=== PATIENT | female | born 1990 | race Caucasian/White ===

== ENCOUNTER 2019-01-26 23:01 | Emergency (ER) | payer OTHER ==
[~2019-01-26] VITALS: Ht 160 cm; Wt 66.2 kg
[2019-01-26] MEDS ORDERED: DICLEGIS (23:51)
[2019-01-26] MEDS ORDERED: ONDANSETRON ODT4 MG (23:51)
[2019-01-26] MEDS ORDERED: MILANTA (23:53)
[2019-01-26] MEDS ORDERED: INMODIUN (23:54)
[2019-01-27] MEDS ORDERED: FOLIC ACID1 MG (00:55)
[2019-01-27] MEDS ORDERED: PEPCID40 MG PO (08:07)
[2019-01-27] MEDS ORDERED: ZOFRAN ODT4 MG PO (08:07)
== END 2019-01-27 08:52 | disposition home or self-care (01) ==
LOC: ER 23:01
DX: O26.891 Other specified pregnancy related conditions, first trimester (principal); K52.89 Other specified noninfective gastroenteritis and colitis; R10.2 Pelvic and perineal pain; Z34.01 Encounter for supervision of normal first pregnancy, first trimester

== ENCOUNTER 2019-01-30 11:42 | Inpatient (IN) | payer OTHER ==
[~2019-01-30] VITALS: Ht 160 cm; Wt 63.5 kg
[~2019-01-30 11:42] MED LIST: DICLEGIS; FOLIC ACID1 MG; INMODIUN; MILANTA; ONDANSETRON ODT4 MG; PEPCID40 MG PO; ZOFRAN ODT4 MG PO
[2019-01-31] MEDS ORDERED: IMODIUM MULTI-1 EACH PO (09:02)
[2019-01-31] MEDS ORDERED: DICLEGIS DR 101 EACH PO (09:03)
== END 2019-02-02 13:08 | disposition home or self-care (01) | DRG 833 ==
LOC: OB/GYN 11:42
PROVIDERS: ADMIT Obstetrics & Gynecology
DX: O26.891 Other specified pregnancy related conditions, first trimester (principal); A08.8 Other specified intestinal infections; K52.89 Other specified noninfective gastroenteritis and colitis; Z34.01 Encounter for supervision of normal first pregnancy, first trimester

== ENCOUNTER 2019-02-19 17:25 | Inpatient (IN) | payer OTHER ==
[~2019-02-19] VITALS: Ht 160 cm; Wt 61.7 kg
[~2019-02-19 17:25] MED LIST changes: +DICLEGIS DR 101 EACH PO; +IMODIUM MULTI-1 EACH PO
== END 2019-02-21 10:46 | disposition home or self-care (01) | DRG 833 ==
LOC: OB/GYN 17:25
PROVIDERS: ADMIT Obstetrics & Gynecology Maternal & Fetal Medicine
DX: O21.0 Mild hyperemesis gravidarum (principal); Z34.02 Encounter for supervision of normal first pregnancy, second trimester

== ENCOUNTER 2019-07-10 08:34 | Inpatient (IN) | payer OTHER ==
[~2019-07-10] VITALS: Ht 160 cm; Wt 2.3 kg
== END 2019-07-12 13:38 | disposition home or self-care (01) | DRG 807 ==
LOC: LDR 08:34 → OB/GYN 07-11 08:10
PROVIDERS: ADMIT Obstetrics & Gynecology
PROC: 10D07Z6 Extraction of Products of Conception, Vacuum, Via Natural or Artificial Opening (ICD-10-PCS; principal; 2019-07-10)
PROC: 0KQM0ZZ Repair Perineum Muscle, Open Approach (ICD-10-PCS; 2019-07-10)
PROC: 0W8NXZZ Division of Female Perineum, External Approach (ICD-10-PCS; 2019-07-10)
PROC: 3E033VJ Introduction of Other Hormone into Peripheral Vein, Percutaneous Approach (ICD-10-PCS; 2019-07-10)
PROC: 4A1HXCZ Monitoring of Products of Conception, Cardiac Rate, External Approach (ICD-10-PCS; 2019-07-10)
DX: O70.1 Second degree perineal laceration during delivery (principal); Z37.0 Single live birth; Z3A.35 35 weeks gestation of pregnancy; Z22.330 Carrier of Group B streptococcus